=== PATIENT | female | born 2000 | race Caucasian/White ===

== ENCOUNTER 2021-08-07 14:18 | Emergency (ER) | payer OTHER, SELFPAY ==
[2021-08-07 14:29] VITALS: BP 148/79; PULSE 82; RESP 18; TEMP 37.4; O2SAT 97
--- NOTE | 2021-08-07 14:29 | ED.DENTAL ---
HPI - Dental/Oral General Chief complaint: Dental/Oral Stated complaint: boil on gum Time Seen by Provider: 08/07/21 14:31 Source: patient and RN notes reviewed Mode of arrival: ambulatory Limitations: no limitations History of Present Illness HPI Narrative: 20-year-old female presented for complaint of right lower dental pain worsening over the past 2 weeks. She states her dentist was closed today with plans to follow-up. She has been using salt water and mouthwash rinses. States pain is approximately 1 out of 10 but noticed it swollen and in the morning she notices a white head to the site with associated foul tasting drainage at times. Denies associated headache, sore throat, mouth swelling, nausea, vomiting, f/c. MD Complaint: tooth pain Related Data Allergies Allergy/AdvReac Type Severity Reaction Status Date / Time No Known Allergies Allergy Mild Verified 08/07/21 14:30 Review of Systems Review of Systems: CONSTITUTIONAL: Denies body aches, fever, chills ENT: Denies rhinorrhea, congestion, sore throat, or otalgia. Reports dental pain CARDIOVASCULAR: Denies chest pain, palpitations RESPIRATORY: Denies cough or dyspnea. SKIN: Denies rash, itching, or wounds. MUSCULOSKELETAL: Denies myalgia. NEUROLOGIC: Denies headache, numbness, tingling, or weakness. PMFSH Comments At time of signature, I have reviewed and agree with nursing past medical, surgical, social and family history unless otherwise noted. Please see nursing chart for further information. There is no relevant family history pertinent to the presenting complaint Exam Narrative: GENERAL: Appears in pain; no acute distress. HEAD: Normocephalic, atraumatic. EYES: EOMI. No redness or drainage. Conjunctivae normal. ENT: Right lower dental pain at #31 with mild swelling laterally, no active drainage, tender with palpation; Mucous membranes pink and moist. TMs normal bilaterally. Throat normal. Uvula midline. NECK: Normal AROM. Supple. No lymphadenopathy. CHEST: No respiratory distress. Clear to auscultation. HEART: Regular rate and rhythm. No murmur appreciated. ABDOMEN: Soft, nontender, nondistended, normal active bowel sounds. SKIN: Warm, dry, no rash. Normal skin turgor. NEURO: No focal deficits. Alert and oriented x3. Gait steady. Course Course Emergency Course: Patient is aware of diagnosis, understands and agrees to treatment plan. Anticipatory guidance given. Patient agrees to follow-up as directed and is aware of reasons to seek care at the emergency department. Portions of this record may have been created with voice recognition software Level of Care: Express Care Visit Vital Signs Vital signs: Vital Signs Temperature 99.3 F 08/07/21 14:29 Pulse Rate 82 08/07/21 14:29 Respiratory Rate 18 08/07/21 14:29 Blood Pressure 148/79 H 08/07/21 14:29 Pulse Oximetry 97 08/07/21 14:29 Temperature 99.3 F 08/07/21 14:29 Pulse Rate 82 08/07/21 14:29 Respiratory Rate 18 08/07/21 14:29 Blood Pressure 148/79 H 08/07/21 14:29 Pulse Oximetry 97 08/07/21 14:29 MDM - Dental/Oral MDM Narrative Medical decision making narrative: Patients pain and complaint coupled with physical findings are consistent with dental abscess There are no focal signs of space occupying lesions that are compromising to the airway; no dysphagia, odynophagia, dysphonia, or dyspnea. No uvular deviation or soft palate edema. Patient is non-toxic appearing. The floor of the mouth is soft with no signs of Alex's Angina; no induration below mandible, no neck pain. Patient is without trismus or drooling and able to swallow secretions. Patient is felt appropriate for discharge home with dental follow up. Discharge Plan Discharge Clinical Impression: Dental abscess Patient Disposition: Home, Self-Care Condition: Stable Instructions: Antibiotic Form, Dental Abscess (ED) Additional Instructions: Take antibiotic as directed May apply hea
== END 2021-08-07 14:40 | disposition home or self-care (01) ==
PROVIDERS: Emergency Provider Nurse Practitioner Family
DX: K04.7 Periapical abscess without sinus (principal)
CPT/HCPCS: 99213; G0463

== ENCOUNTER 2021-08-19 09:00 | Emergency (ER) | payer OTHER, SELFPAY ==
--- NOTE | ~2021-08-19 | XR_ITS ---
EXAMINATION: XR chest 2V 08/19/2021 09:25 INDICATION: Shortness of breath and wheezing PROCEDURE: 2 view chest COMPARISON: 10/04/2008 FINDINGS: The lungs are clear. The cardiomediastinal silhouette is within normal limits. There are no pleural effusions. There is no pneumothorax suspected. IMPRESSION: 1: NO ACUTE CARDIOPULMONARY DISEASE. Reviewed, dictated and finalized at location B.
[2021-08-19 09:07] VITALS: BP 148/83; PULSE 98; RESP 14; TEMP 36.8; O2SAT 100
--- NOTE | 2021-08-19 09:12 | ED.URI ---
HPI - URI/Sore Throat General Chief Complaint: Upper Respiratory Infection Stated Complaint: Shortness of Breath/Chest Congestion Time Seen by Provider: 08/19/21 09:13 Source: patient, RN notes reviewed and old records reviewed Mode of arrival: ambulatory Limitations: no limitations History of Present Illness HPI Narrative: 20-year-old female who presents to [facility] with complaints of 3-day history of sore throat, cough with some shortness of breath and wheezing which increased last night. Patient states no history or asthma, denies any acute fevers, chills or sweats. Patient reports that she has been taking Aracely, Tussin DM, and also Ibuprofen for her symptoms.Patient states that she has tightness to her upper chest with deep breathing able to speak in full sentences. MD elicited complaint: cough, sore throat, rhinorrhea, nasal congestion and other (wheezing) Pertinent past history: pneumonia and other (strep) Onset (ago): day(s) (3) Consistency: progressively worsening Severity: moderate Pain scale (0-10): 4 Description of mucous: clear Exacerbating factors: swallowing and exertion Associated symptoms: rhinorrhea, nasal congestion, sore throat and cough Treatments prior to arrival: ibuprofen, cold medicine and other (cough medication) Related Data Allergies Allergy/AdvReac Type Severity Reaction Status Date / Time No Known Allergies Allergy Mild Verified 08/19/21 09:13 Review of Systems Review of Systems: CONSTITUTIONAL: Denies fever, chills, or sweats. EYES: Denies visual changes, redness, or discharge. ENT: Positive rhinorrhea, congestion, sore throat, no otalgia. CARDIOVASCULAR: positive for upper chest tightness, denies palpitations, or edema or any diaphoresis RESPIRATORY: Positive for cough and some dyspnea. GASTROINTESTINAL: Denies abdominal pain, nausea, vomiting, or diarrhea. GENITOURINARY: Denies dysuria or hematuria. SKIN: Denies rash or itching. MUSCULOSKELETAL: Denies back pain, joint pain, or myalgia. NEUROLOGIC: Denies headache, numbness, or weakness. PSYCHIATRIC: Denies anxiety or depression. All systems reviewed & are unremarkable except as noted in HPI and below PMFSH Past Medical History Medical History (Updated 08/19/21 @ 11:25 by Marivel Martinez NP) COVID-24 June 2021 Dental caries Miscarriage Pneumonia Strep throat Surgical History Surgical History (Updated 08/19/21 @ 11:26 by Marivel Martinez NP) No history of previous surgery Family History Family History (Updated 08/19/21 @ 09:31 by Marivel Martinez NP) Mother Hypertension Grandparent Diabetes mellitus History of kidney cancer Lung cancer Social History Social History (Updated 08/19/21 @ 09:37 by Marivel Martinez NP) Smoking status: Never smoker Alcohol intake: current Alcohol use details: social Substance use type: does not use Living arrangements: with family Gender identity (if verbalized by the patient): Female Comments At time of signature, agree with nursing past medical, surgical, social and family history. There is no relevant family history pertinent to the presenting complaint Exam Narrative: GENERAL: ill-appearing, well-nourished, and in no acute distress. HEAD: Normocephalic, atraumatic. EYES: PERRLA and EOMI. ENT: Nares mild redness with clear rhinorrhea no epistaxis. Mucous membranes moist.TM's normal with good light reflex, throat red with no lesions or exudates, tonsils red and swollen. NECK: Supple.no lymphadenopathy CHEST: Scattered wheezing on auscultation. No respiratory distress.SAO2 100% on room air, some tightness to chest with breathing. no diaphoresis, no tachypnea. HEART: Regular rate and rhythm. No murmur heard. Normal peripheral pulses. ABDOMEN: Soft, nontender, nondistended, normal active bowel sounds. EXTREMITIES: Normal range of motion. No edema. SKIN: Warm, dry, no rash. NEURO: No focal deficits. Alert and oriented x3. Course Course Level of Care: E
== END 2021-08-19 09:50 | disposition home or self-care (01) ==
PROVIDERS: Emergency Provider Registered Nurse
DX: J02.0 Streptococcal pharyngitis (principal); J40 Bronchitis, not specified as acute or chronic; Z86.16 Personal history of COVID-19
CPT/HCPCS: 71046; 87880; 99213; G0463

== ENCOUNTER 2022-11-11 11:39 | Emergency (ER) | payer OTHER, SELFPAY ==
--- NOTE | 2022-11-11 11:41 | ED.URI ---
HPI - URI/Sore Throat General Chief Complaint: Upper Respiratory Infection Stated Complaint: cough sore throat fever Time Seen by Provider: 11/11/22 11:41 Source: patient and RN notes reviewed History of Present Illness HPI Narrative: Patient is a 22 year old child presents to urgent care with complaints of a cough, sore throat and fever. Patient states the fever resolved over 24 hours ago. Patient has been taking DayQuil and NyQuil for symptom relief. Denies any ill contacts. States that her COVID test at home was negative. No other acute complaints. No acute distress noted. Patient aware of the plan of care. Some parts of this dictation were generated by voice recognition software and may contain typographical and/or grammatical inaccuracies. Related Data Home Medications Medication Instructions Recorded Confirmed norethindrone 1 mg-ethinyl 1 tablet PO DIRECTED 11/11/22 11/11/22 estradiol 20 mcg (21)-iron 75 mg (7) tablet ([place] Fe / (28)) Allergies Allergy/AdvReac Type Severity Reaction Status Date / Time No Known Allergies Allergy Mild Verified 11/11/22 11:53 Review of Systems Review of Systems: CONSTITUTIONAL: Reports of fever EYES: Denies visual changes, redness, or discharge. ENT: Reports sore throat CARDIOVASCULAR: Denies chest pain, palpitations, or edema. RESPIRATORY: Reports cough without dyspnea GASTROINTESTINAL: Denies abdominal pain, nausea, vomiting, or diarrhea. GENITOURINARY: Denies dysuria or hematuria. SKIN: Denies rash or itching. MUSCULOSKELETAL: Denies back pain, joint pain, or myalgia. NEUROLOGIC: Denies headache, numbness, or weakness. All other systems reviewed are negative, except as documented in HPI. [facility] Past Medical History Medical History (Updated 11/11/22 @ 12:04 by AGGIE Parra) COVID-24 June 2021 Dental caries Miscarriage Pneumonia Strep throat Surgical History Surgical History (Updated 08/19/21 @ 11:26 by Marivel Martinez NP) No history of previous surgery Family History Family History (Updated 08/19/21 @ 09:31 by Marivel Martinez NP) Mother Hypertension Grandparent Diabetes mellitus History of kidney cancer Lung cancer Social History Social History (Updated 08/19/21 @ 09:37 by Marivel Martinez NP) Smoking status: Never smoker Alcohol intake: current Alcohol use details: social Substance use type: does not use Living arrangements: with family Gender identity (if verbalized by the patient): Female Comments At the time of my signature, I reviewed and agree with the nursing past medical, surgical, social, and family history. There is no relevant family history pertinent to the patient complaint. Exam Narrative: GENERAL: This is a well-nourished, well-developed patient, in no apparent distress. HEAD: normocephalic, atraumatic. EYES: PERRL. Sclera clear/white. Vision is grossly intact. EARS: External ears normal, auditory canals clear and without drainage, TMs normal without perforation. Hearing grossly intact. NOSE: External nose normal with no obvious nasal discharge, nares without redness, no rhinorrhea. THROAT: Mucous membranes moist, posterior pharynx clear. Mild postnasal drainage NECK: Neck supple CARDIOVASCULAR: Regular rate and rhythm without murmurs, gallops, or rubs. RESPIRATORY: Scant inspiratory wheeze to the right upper lobe, cleared with cough. Breath sounds equal bilaterally. SKIN: warm, intact with no suspicious lesions or rash, good texture and turgor. NEURO: awake, alert, and oriented to person, place and time. There were no obvious focal neurologic abnormalities. EXTREMITIES: No clubbing, cyanosis, or edema. Course Course Level of Care: Express Care Visit Vital Signs Vital signs: Vital Signs Temperature 98.3 F 11/11/22 11:53 Pulse Rate 91 11/11/22 11:53 Respiratory Rate 16 11/11/22 11:53 Blood Pressure 143/67 H 11/11/22 11:53 Pulse Oximetry 9
[2022-11-11 11:53] VITALS: BP 143/67; PULSE 91; RESP 16; TEMP 36.8; O2SAT 99
[2022-11-11 11:55] VITALS: BP 143/67; PULSE 91; RESP 16; TEMP 36.8; O2SAT 99
== END 2022-11-11 12:06 | disposition home or self-care (01) ==
PROVIDERS: Emergency Provider Nurse Practitioner Family
DX: J02.9 Acute pharyngitis, unspecified (principal); Z86.16 Personal history of COVID-19
CPT/HCPCS: 87081; 87880; 99213; G0463